=== PATIENT | female | born 1960 | race Caucasian/White ===

== ENCOUNTER 2020-08-07 08:55 | Outpatient (CLI) | payer OTHER, SELFPAY ==
--- NOTE | 2020-08-07 09:00 | ECG_ITS ---
Measurements Intervals [place] Rate: 74 P: 40 MO: 144 QRS: -8 QRSD: 112 T: 43 QT: 359 QTc: 399 Interpretive Statements SINUS RHYTHM INTRAVENTRICULAR CONDUCTION DELAY DELAYED PRECORDIAL R/S TRANSITION BORDERLINE T WAVE ABNORMALITY- ANTERIOR LEADS BORDERLINE ECG Electronically Signed On 08-07-2020 10:37:44 [employer]OMOTIONAL DEMONSTRATOR by Stefna Higuera D.O.
== END 2020-08-07 08:56 | disposition home or self-care (01) ==
LOC: ANHSURGERY 09:00
PROVIDERS: PCP Family Medicine; Visit Provider Surgery Plastic and Reconstructive Surgery
DX: Z01.818 Encounter for other preprocedural examination (principal); I10 Essential (primary) hypertension; I45.9 Conduction disorder, unspecified
CPT/HCPCS: 93005

== ENCOUNTER 2020-08-08 00:33 | Outpatient (CLI) | payer OTHER, SELFPAY ==
[2020-08-08 20:15] LABS: SARS-CoV-2 RNA PCR Negative
== END 2020-08-08 00:34 | disposition home or self-care (01) ==
LOC: ANHCOVIDDT 00:33
PROVIDERS: PCP Family Medicine; Visit Provider Surgery Plastic and Reconstructive Surgery
DX: Z01.818 Encounter for other preprocedural examination (principal); Z20.828 Contact with and (suspected) exposure to other viral communicable diseases
CPT/HCPCS: 87635; C9803; U0003

== ENCOUNTER 2020-08-11 00:33 | Day surgery (SDC) | payer OTHER, SELFPAY ==
[2020-08-04 09:59] VITALS: BMI 34.9
--- NOTE | 2020-08-10 09:31 | P.PNAN_ITS ---
Anes - Initial Pre Proc Eval Procedure: Operation Date: 08/11/20 07:30 Proposed Procedures p Bilateral Brachioplasty - Sreekanth Chisholm MD Date/Time: 08/10/20 09:31 Surgeon: Sreekanth Chisholm MD Pre Op Diagnosis: skin laxity Patient Data Age: 59 Gender: F Height: 1.7 m Weight: 101.15 kg Allergies Allergy/AdvReac Type Severity Reaction Status Date / Time No Known Allergies Allergy Verified 08/11/20 06:15 Home Medications Medication Instructions Recorded Confirmed Type docusate sodium 100 mg capsule 100 mg PO DAILY #14 cap 07/28/20 08/11/20 Rx hydrocodone 5 mg-acetaminophen 325 1 tablet PO Q6H PRN #15 tablet 07/28/20 08/11/20 Rx mg tablet losartan 50 mg tablet 50 mg PO DAILY 07/28/20 08/11/20 History ondansetron HCl 4 mg tablet 4 mg PO Q8H #28 tablet 07/28/20 08/11/20 Rx Patient hx anesthesia problems: none Family hx anesthesia problems: none [facility] Past Medical History Medical History (Updated 08/11/20 @ 06:42 by Ilya Zarate DO) Hypertension Social History Social History Smoking status: Never smoker Gender identity (if verbalized by the patient): Male Spiritual care concerns: No Anes - Eval Final PreProcedure Day of Procedure 08/10/20 09:31 Patient weight: obese Heart: regular rate and rhythm Lungs: clear to auscultation and normal air movement Airway: Mallampati scale class II Neurological: alert and oriented Last oral intake: >/= 8 hours ASA classification: III Emergent: no Anesthetic plan: proceed Anesthesia type and monitoring: general LMA and standard monitoring Informed Consent: The patient's anesthetic plan and its attendant risks and benefits were discussed with the patient/family/POA. Questions were solicited and answers provided to the satisfaction of the patient/family/POA.
[2020-08-11] VITALS (8 sets, daily range): BP systolic 127–159; BP diastolic 71–93; PULSE 64–81; RESP 10–18; TEMP 36.5–37.1; O2SAT 94–100
[2020-08-11 06:39] LABS: Urine Cotinine NEGATIVE
[2020-08-11] MEDS: LACTATED RINGERS 1,000 ML 30 ML IV CONT ×2 (07:00→11:00)
--- NOTE | 2020-08-11 07:02 | WPDHPUPDATE1 ---
History and Physical Update Update Date/Time: 08/11/20 07:02 History and Physical has been reviewed, including an updated exam of the patient. There are NO changes in the patient's condition. Risks, benefits, and alternatives have been discussed and questions answered. Patient agrees to proceed with procedure.
[2020-08-11] MEDS: MIDAZOLAM HCL (*CRX) 2 MG/2 ML VIAL IV PUSH (07:19)
[2020-08-11] MEDS: ceFAZolin 2 GM/D5W 50 ML 2 GM/50 ML BAG IVPB (07:39)
--- NOTE | 2020-08-11 10:45 | PM.PROC ---
Procedure Note - Detailed Date of procedure: 08/11/20 Pre-op diagnosis: skin laxity Post-op diagnosis: same Procedure performed: Bilateral brachioplasty Description of procedure: Risks, benefits, alternatives were discussed extensively preoperatively. I want her to be very realistic about the risks involved as well as expectations. Made sure answered all of her questions to her satisfaction. Consent obtained. She was marked in the preoperative holding area with her verification. She was taken to the operating room placed supine on the operating room table. Anesthesia was provided by anesthesiology and prepped and draped in a standard sterile fashion. Surgical time-out was taken. Stab incisions were made and used a tumescent solution to tumesced the arm. Once adequate time for hemostasis I used a 4 mm basket cannula using modification of S.A.F.E. technique to a rolling pinch test completely defatting in the central portion. A 10 blade used to make an incision and in a cut as you go fashion I did a strip avulsion technique removing the tissue and stapling as we went. I then closed using 2-0 Vicryl followed by 3-0 strata fix and 3-0 chromic. Xeroform fluffs and Mike wrap Erasto for final dressing. Patient was awoke and taken the PACU without difficulty. All instrument sponge counts were correct at the end of the case. Anesthesia: GLMA Surgeon: Sreekanth Chisholm MD Estimated blood loss (mL): 20 Drains: No Packing: No Pathology: none sent Complications: No immediate complications Condition: stable Disposition: PACU Findings: 1250 cc lipoaspirate
== END 2020-08-11 13:25 | disposition home or self-care (01) ==
PROVIDERS: PCP Family Medicine; Visit Provider Surgery Plastic and Reconstructive Surgery
PROC: (CPT 15836; principal; 2020-08-11 07:30)
DX: Z41.1 Encounter for cosmetic surgery (principal); L57.4 Cutis laxa senilis; I10 Essential (primary) hypertension; Z79.899 Other long term (current) drug therapy; E66.9 Obesity, unspecified; Z68.34 Body mass index [BMI] 34.0-34.9, adult
CPT/HCPCS: 15836; 15878; 80307; 87635; 93005; C9803; J0171; J0690; J1100; J1200; J2250; J2405; J2704; J3010; J7120; U0003